=== PATIENT | female | born 1965 | race Caucasian/White ===

== ENCOUNTER 2019-07-01 04:06 | Emergency (ER) | payer MEDICAID ==
[~2019-07-01] VITALS: Ht 167.6 cm; Wt 66.4 kg
[2019-07-01] MEDS ORDERED: IBUPROFEN 400 MG TABLET PO ONE (05:30)
[2019-07-01] MEDS ORDERED: ACETAMINOPHEN 325 MG TABLET PO ONE (05:30)
[2019-07-01] MEDS ORDERED: ONDANSETRON HCL 4 MG TABLET PO ONE (06:30)
[2019-07-01 07:27] LABS: INFLUENZA TYPE A NEGATIVE FOR TYPE A (NEGATIVE); INFLUENZA TYPE B NEGATIVE FOR TYPE B (NEGATIVE)
[2019-07-01 07:37] VITALS: BP 96/47
== END 2019-07-01 07:57 | disposition home or self-care (01) ==
LOC: EMS 04:09 → EDSEX 04:09 → EMS 07:57
DX: J06.9 Acute upper respiratory infection, unspecified (principal); B97.89 Other viral agents as the cause of diseases classified elsewhere
CPT/HCPCS: 87804; 99284; Q0162

== ENCOUNTER 2021-05-28 15:57 | Emergency (ER) | payer MEDICAID ==
[~2021-05-28] VITALS: Ht 167.6 cm; Wt 67.3 kg
[2021-05-28 17:44] LABS: COVID AG,FIA SOURCE NASOPHARYNGEAL
[2021-05-28 18:40] VITALS: BP 133/70
== END 2021-05-28 19:30 | disposition home or self-care (01) ==
LOC: EMS 16:11
DX: J02.9 Acute pharyngitis, unspecified (principal); Z20.822 Contact with and (suspected) exposure to COVID-19
CPT/HCPCS: 99283

== ENCOUNTER 2023-12-25 13:09 | Emergency (ER) | payer MEDICAID ==
[~2023-12-25] VITALS: Ht 165.1 cm; Wt 63.6 kg
[2023-12-25 13:14] VITALS: BP 111/67; PULSE 73; RESP 16; TEMP 98
[2023-12-25] MEDS: PERTUSS(ACELL),DIPH,TET/PF 0.5 ML SYRINGE [ADULT] IM. ONE (14:40)
[2023-12-25] MEDS ORDERED: CIPR500T10 PO (15:16)
== END 2023-12-25 15:40 | disposition home or self-care (01) ==
LOC: EMS 13:09
DX: S91.331A Puncture wound without foreign body, right foot, initial encounter (principal); Z98.51 Tubal ligation status; W22.8XXA Striking against or struck by other objects, initial encounter; Y93.89 Activity, other specified; Y92.89 Other specified places as the place of occurrence of the external cause; Y99.8 Other external cause status
CPT/HCPCS: 90471; 90715; 99283